=== PATIENT | male | born 1955 | race Caucasian/White ===

== ENCOUNTER 2018-04-22 17:48 | Emergency (ER) | payer SELFPAY ==
[2018-04-22 18:26] LABS: Urine Blood 2+ (NEG); Urine Glucose NEGATIVE (NEG); Urine Protein TRACE (NEG); Urine Specific Gravity 1.025 (1.005-1.030); Urine pH 6.5 (5.0-7.0)
[2018-04-22 18:41] LABS: Urine Bacteria <20 /HPF (NONE SEEN); Urine Culture Reflex Order NOT NEEDED; Urine Mucus 1+ /HPF (NONE SEEN); Urine RBC 20-50 /HPF (NONE SEEN)
[2018-04-22] MEDS ORDERED: KETOROLAC 30 MG/ML INJ ONE (18:42)
[2018-04-22] MEDS ORDERED: ONDANSETRON 4 MG/2 ML VIAL ONE (18:42)
[2018-04-22 18:59] LABS: Absolute Lymphocytes (CBC) 1.4 K/uL (0.7-4.9); Absolute Monocytes 0.5 K/uL (0.1-1.3); Absolute Neutrophil 5.9 K/uL (1.8-8.0); Basophils % 0.6 % (0-1.3); Eosinophils % 0.2 % (0-4.4); Hematocrit 42.1 % (39.6-49.0); Lymphocytes % 18.2 % (15.3-44.8); MCH 32.2 pg (27.0-35.0); MCV 93.4 fL (80-100); MPV 9.4 fL (7.6-11.3); Monocytes % 6.2 % (3.3-12.3); RBC Red Blood Cell Count 4.51 M/uL (4.33-5.43)
[2018-04-22 19:04] LABS: ALT/SGPT 22 U/L (12-78); AST/SGOT 28 U/L (15-37); Alkaline Phosphatase 68 U/L (45-117); Amylase Level 53 U/L (25-115); BUN Blood Urea Nitrogen 11 mg/dL (7-18); Bicarbonate 27 mmol/L (21-32); Bilirubin Direct < 0.1 mg/dL (0-0.2); Bilirubin Total 0.3 mg/dL (0.2-1.0); Glucose Level 150 mg/dL (74-106); Lipase 91 U/L (73-393); Potassium 3.1 mmol/L (3.5-5.1); Protein, Total 7.8 g/dL (6.4-8.2); Sodium Level 137 mmol/L (136-145)
--- NOTE | 2018-04-22 19:54 | RAD REPORT ---
EXAM DESCRIPTION: CT - Stone Protocol - 04/22/2018 7:14 pm CLINICAL HISTORY: Flank pain. right flank pain COMPARISON: None TECHNIQUE: Axial images were obtained without oral or IV contrast. Lack of contrast limits solid org an and vascular assessment. The [id number] spans the entirety of the system partially obscuring uppermost abdomen and lung bases. Coronal reformatted images were obtained and reviewed. All CT scans are performed using dose optimization technique as appropriate and may include automated exposure control or mA/KV adjustment according to patient size. FINDINGS: The lower lung arzate are clear. Small hiatal hernia. Imaged portions of the liver and spleen show no suspicious findings on non-contrast imaging. The panc reas and adrenal glands are normal. No pathologic lymphadenopathy in the abdomen or pelvis. Mild right hydronephrosis and hydroureter is seen. A 2 mm stone is present in the urinary bladder, pr obably recently passed from the right system. Punctate bilateral nephrolithiasis is present in bot h kidneys. No bowel obstruction, free air, free fluid or abscess. The appendix is likely absent. Lumbosacral degenerative changes are seen. IMPRESSION: 2 mm calculus in the urinary bladder is suspected to have been recently passed via the r ight system with mild right sided residual hydronephrosis. Punctate bilateral nephrolithiasis.
--- NOTE | 2018-04-22 20:04 | EDPHYS ---
Physician Documentation [facility] Name: Alban Everett Age: 62 yrs Sex: Male : 1955 Arrival Date: 04/22/2018 Time: 17:50 Bed 30 Private MD: None, None ED Physician Duncan Acharya HPI: 04/22 18:20 This 62 yrs old Male presents to ER via Ambulatory with complaints of Abd cp Pain > 50 y/o, Groin Pain, Back Pain. 18:20 The patient complains of pain in the right mid back. cp 18:20 The pain radiates to the abdomen and pelvis. Onset: The symptoms/episode began/occurred cp suddenly, this morning. Associated signs and symptoms: Pertinent negatives: diarrhea, dysuria, fever, pain radiating to the lower extremities, vomiting. Severity of pain: in the emergency department the pain is actually worse moderately. Historical: - Allergies: 17:59 No Known Allergies; aj1 - Home Meds: 17:59 None [Active]; aj1 - PMHx: 17:59 None; aj1 - PSHx: 17:59 Appendectomy; aj1 - Immunization history:: Flu vaccine is up to date. - Social history:: Smoking status: Patient/guardian denies using tobacco. - Ebola Screening: : Patient denies travel to an Ebola-affected area in the 21 days before illness onset. ROS: 18:25 Constitutional: Negative for body aches, chills, fever, poor PO intake. cp 18:25 Eyes: Negative for injury, pain, redness, and discharge. cp 18:25 ENT: Negative for drainage from ear(s), ear pain, sore throat, difficulty swallowing, difficulty handling secretions. 18:25 Cardiovascular: Negative for chest pain, edema, palpitations. 18:25 Respiratory: Negative for cough, shortness of breath, wheezing. 18:25 Abdomen/GI: Positive for abdominal pain, nausea, Negative for diarrhea, constipation, anorexia, black/tarry stool, rectal bleeding. 18:25 Back: Positive for flank pain, on the right. 18:25 : Negative for urinary symptoms. 18:25 Skin: Negative for cellulitis, rash. 18:25 Neuro: Negative for altered mental status, headache, weakness. 18:25 All other systems are negative. Exam: 18:30 Constitutional: The patient appears in no acute distress, alert, awake, cp non-diaphoretic, non-toxic, well developed, well nourished, uncomfortable. 18:30 Head/Face: Normocephalic, atraumatic. cp 18:30 Eyes: Periorbital structures: appear normal, Conjunctiva: normal, no exudate, no injection, Sclera: no appreciated abnormality, Lids and lashes: appear normal, bilaterally. 18:30 ENT: External ear(s): are unremarkable, Nose: is normal, Mouth: Lips: moist, Oral mucosa: pink and intact, moist, Posterior pharynx: is normal, airway is patent, no erythema, no exudate. 18:30 Neck: ROM/movement: is normal, is supple, without pain, no range of motions limitations, no nuchal rigidity. 18:30 Chest/axilla: Inspection: normal, Palpation: is normal, no crepitus, no tenderness. 18:30 Cardiovascular: Rate: normal, Rhythm: regular, Edema: is not appreciated, JVD: is not appreciated. 18:30 Respiratory: the patient does not display signs of respiratory distress, Respirations: normal, no use of accessory muscles, no retractions, no splinting, no tachypnea, labored breathing, is not present, Breath sounds: are clear throughout, no decreased breath sounds, no stridor, no wheezing. 18:30 Abdomen/GI: Inspection: abdomen appears normal, Bowel sounds: active, all quadrants, Palpation: soft, in all quadrants, severe abdominal tenderness, in the anterior aspect of right lateral abdomen, posterior aspect of right lateral abdomen and right lower quadrant, rebound tenderness, is not appreciated, voluntary guarding, is elicited in the anterior aspect of right lateral abdomen, posterior aspect of right lateral abdomen and right lower quadrant. 18:30 Back: CVA tenderness, is noted on the right. 18:30 Skin: cellulitis, is not appreciated, no rash present. 18:30 Neuro: Orientation: to person, place \T\ time. Mentation: lucid, able to follow commands, Cerebellar function: is grossly normal, Motor: moves all fours, strength is normal, Sensation: no obvious gross deficits. Vital Signs: 17:59 BP 166 / 102; Pulse 88; Resp 18; Temp 97.8; Pulse Ox 98% on R/A; Weight 61.23 kg (R); aj1 Height 6 ft. 0 in. (182.88 cm) (R); Pain 10/10; 19:30 BP 128 / 82 LA Sitting (auto/reg); Pulse 60; Resp 20 S; Pulse Ox 95% on R/A; jp3 17:59 Body Mass Index 18.31 (61.23 kg, 182.88 cm) aj1 MDM: 18:12 Patient medically screened. cp 20:01 Data reviewed: vital signs, nurses notes, lab test result(s), radiologic studies, CT cp scan, and as a result, I will discharge patient. ED course: VSS. Patient reports pain resolved. 04/22 18:12 Order name: Urine Microscopic Only; Complete Time: 19:43 cp 04/22 18:17 Order name: Urine Dipstick--Ancillary (enter results) eb 04/22 18:18 Order name: Urine Dipstick-Ancillary; Complete Time: 19:43 EDMS 04/22 18:25 Order name: Amylase, Serum; Complete Time: 19:43 cp 04/22 18:25 Order name: Basic Metabolic Panel; Complete Time: 19:43 cp 04/22 18:25 Order name: CBC with Diff; Complete Time: 19:43 cp 04/22 18:12 Order name: Urine Dipstick-Ancillary (obtain specimen); Complete Time: 18:21 cp 04/22 18:25 Order name: Creatinine for Radiology; Complete Time: 19:43 cp 04/22 18:25 Order name: Hepatic Function; Complete Time: 19:43 cp 04/22 18:25 Order name: Lipase; Complete Time: 19:43 cp 04/22 18:25 Order name: CT Stone Protocol; Complete Time: 19:57 cp 04/22 18:25 Order name: IV Saline Lock; Complete Time: 18:40 cp 04/22 18:25 Order name: Labs collected and sent; Complete Time: 18:40 cp Administered Medications: 18:39 Drug: TORadol 30 mg Route: IVP; Site: right antecubital; rv 20:03 Follow up: Response: No adverse reaction; Pain is decreased rv 18:39 Drug: Zofran 4 mg Route: IVP; Site: right antecubital; rv 20:03 Follow up: Response: No adverse reaction; Pain is decreased rv Disposition: 04/23 10:00 Co-signature as Attending Physician, Duncan Acharya MD. rn Disposition: 04/22/18 20:03 Discharged to Home. Impression: Calculus of kidney. - Condition is Stable. - Discharge Instructions: Kidney Stones. - Medication Reconciliation Form, Thank You Letter, Antibiotic Education, Prescription Opioid Use form. - Follow up: Emergency Department; When: As needed; Reason: Worsening of condition. - Problem is new. - Symptoms are resolved. Signatures: Dispatcher [employer] EDiLsa Duque RN RN aj1 Duncan Acharya MD MD rn Garrett Burton PA PA cp Wero Whitney RN RN rv Corrections: (The following items were deleted from the chart) 04/22 20:16 20:03 04/22/2018 20:03 Discharged to Home. Impression: Calculus of kidney. Condition is rv Stable. Forms are Medication Reconciliation Form, Thank You Letter, Antibiotic Education, Prescription Opioid Use. Follow up: Emergency Department; When: As needed; Reason: Worsening of condition. Problem is new. Symptoms are resolved. cp
--- NOTE | 2018-04-22 20:04 | ER ---
Nurse's Notes [facility] Name: Alban Everett Age: 62 yrs Sex: Male : 1955 Arrival Date: 04/22/2018 Time: 17:50 Bed 30 Private MD: None, None Diagnosis: Calculus of kidney Presentation: 04/22 17:52 Presenting complaint: Patient states: Right lower back pain that radiates to his groin. aj1 Denies pain with urination, denies urinary frequency. Transition of care: patient was not received from another setting of care. Onset of symptoms was April 22, 2018 at 04:15. Risk Assessment: Do you want to hurt yourself or someone else? Patient reports no desire to harm self or others. Initial Sepsis Screen: Does the patient meet any 2 criteria? No. Patient's initial sepsis screen is negative. Does the patient have a suspected source of infection? No. Patient's initial sepsis screen is negative. Care prior to arrival: None. 17:52 Method Of Arrival: Ambulatory aj1 17:52 Acuity: TRI 3 aj1 Triage Assessment: 17:59 General: Appears in no apparent distress. uncomfortable, Behavior is calm, cooperative, aj1 appropriate for age. Pain: Complains of pain in right low back Pain radiates to groin and right femoral area Pain currently is 10 out of 10 on a pain scale. Neuro: Level of Consciousness is awake, alert, obeys commands. Cardiovascular: Patient's skin is warm and dry. Respiratory: Airway is patent Respiratory effort is even, unlabored, Respiratory pattern is regular, symmetrical. GI: Reports nausea, Patient currently denies diarrhea, vomiting. : Denies burning with urination, urinary frequency. Historical: - Allergies: 17:59 No Known Allergies; aj1 - Home Meds: 17:59 None [Active]; aj1 - PMHx: 17:59 None; aj1 - PSHx: 17:59 Appendectomy; aj1 - Immunization history:: Flu vaccine is up to date. - Social history:: Smoking status: Patient/guardian denies using tobacco. - Ebola Screening: : Patient denies travel to an Ebola-affected area in the 21 days before illness onset. Screenin:14 Abuse screen: Denies threats or abuse. Denies injuries from another. Nutritional rv screening: No deficits noted. Tuberculosis screening: No symptoms or risk factors identified. Fall Risk None identified. Assessment: 17:30 General: Appears in no apparent distress. uncomfortable, Behavior is calm, cooperative. rv 17:30 Pain: Complains of pain in flank. Neuro: Level of Consciousness is awake, alert, obeys rv commands, Oriented to person, place, time, situation. Cardiovascular: Capillary refill < 3 seconds. Respiratory: Airway is patent. GI: No signs and/or symptoms were reported involving the gastrointestinal system. Bowel sounds present X 4 quads. Abd is soft and non tender X 4 quads. : No signs and/or symptoms were reported regarding the genitourinary system. EENT: No signs and/or symptoms were reported regarding the EENT system. Derm: Skin is intact. Vital Signs: 17:59 BP 166 / 102; Pulse 88; Resp 18; Temp 97.8; Pulse Ox 98% on R/A; Weight 61.23 kg (R); aj1 Height 6 ft. 0 in. (182.88 cm) (R); Pain 10/10; 19:30 BP 128 / 82 LA Sitting (auto/reg); Pulse 60; Resp 20 S; Pulse Ox 95% on R/A; jp3 17:59 Body Mass Index 18.31 (61.23 kg, 182.88 cm) aj1 ED Course: 17:50 Patient arrived in ED. sb2 17:50 None, None is Private Physician. sb2 17:58 Triage completed. aj1 17:59 Arm band placed on Patient placed in an exam room. aj1 18:00 No provider procedures requiring assistance completed. Inserted saline lock: 20 gauge rv in right antecubital area, using aseptic technique. 18:12 Garrett Burton PA is PHCP. cp 18:12 Duncan Acharya MD is Attending Physician. cp 18:25 Urine Microscopic Only Sent. jp3 18:25 Urine Dipstick--Ancillary (enter results) Sent. jp3 18:25 Urine Dipstick-Ancillary Sent. jp3 19:13 CT completed. Patient tolerated procedure well. Patient moved back from CT. vr 19:14 CT Stone Protocol In Process Unspecified. EDMS 20:14 Patient has correct armband on for positive identification. Bed in low position. Call rv light in reach. Side rails up X2. Pulse ox on. NIBP on. 20:15 IV discontinued, bleeding controlled, No redness/swelling at site. Pressure dressing rv applied. Administered Medications: 18:39 Drug: TORadol 30 mg Route: IVP; Site: right antecubital; rv 20:03 Follow up: Response: No adverse reaction; Pain is decreased rv 18:39 Drug: Zofran 4 mg Route: IVP; Site: right antecubital; rv 20:03 Follow up: Response: No adverse reaction; Pain is decreased rv Outcome: 20:03 Discharge ordered by . cp 20:16 Discharged to home ambulatory. rv 20:16 Condition: improved 20:16 Discharge instructions given to patient, Instructed on discharge instructions, follow up and referral plans. Demonstrated understanding of instructions, follow-up care. 20:16 Patient left the ED. rv Signatures: Dispatcher [employer] EDLisa Duque, RN RN aj1 Charla Bhandari Corey, PA PA cp Billeau, Sheri sb2 Wero Whitney RN RN rv Reid Paiz jp3
[2018-04-22] MEDS ORDERED: POTASSIUM 25 MEQ EFFERV TAB ONE (20:12)
== END 2018-04-22 20:16 | disposition home or self-care (01) ==
LOC: ER 17:48
DX: N13.2 Hydronephrosis with renal and ureteral calculous obstruction (principal)
CPT/HCPCS: 36415; 74176; 76377; 80048; 80076; 81003; 81015; 82150; 83690; 85025; 96374; 96375; 99284; J2405

== ENCOUNTER 2019-01-21 09:09 | Emergency (ER) | payer SELFPAY ==
--- OUTSIDE RECORDS SUMMARY | 2019-01-21 09:16 | XMS REPORT ---
:1955 [facility] [address] [place] [address] [address] [place] [address] Care Team Providers Name Role Phone Unavailable Unavailable Unavailable Problems This patient has no known problems. Allergies, Adverse Reactions, Alerts This patient has no known allergies or adverse reactions. Medications This patient has no known medications.
[2019-01-21] MEDS ORDERED: HYDROCODONE/APAP 7.5/325 MG TAB ONE (09:42)
--- NOTE | 2019-01-21 10:13 | RAD REPORT ---
EXAM DESCRIPTION: RAD - Chest Pa And Lat (2 Views) - 01/21/2019 9:41 am CLINICAL HISTORY: Chest, shoulder and neck pain COMPARISON: None. TECHNIQUE: PA and lateral views of the chest were obtained. FINDINGS: The lungs are clear of failure, infiltrate or mass. Chronic interstitial lung disease is e vident. Heart size is normal and central vasculature is within normal limits. No pleural effusion or pneumothorax seen. No acute bony finding noted. No aortic abnormality. IMPRESSION: No acute cardiopulmonary process.
--- NOTE | 2019-01-21 10:17 | RAD REPORT ---
EXAM DESCRIPTION: CT - C Spine Wo Con - 01/21/2019 9:49 am CLINICAL HISTORY: Left-sided neck and shoulder pain COMPARISON: None. TECHNIQUE: Axial 2 mm thick images of the cervical spine were obtained with sagittal and coronal rec onstruction images generated and reviewed. All CT scans are performed using dose optimization technique as appropriate and may include automated exposure control or mA/KV adjustment according to patient size. FINDINGS: Cervical bodies are normal in height. There is slight retrolisthesis of C4 on C5. Signific ant C4-5 disc space narrowing is seen with additional disc space narrowing at C5-6 and C6-7. No fract ure or acute bone process identifiable. Bilateral bony foraminal encroachment is present at C4-5 and severe at C5-6. Left bony foraminal encroachment at C6-7. No paraspinal mass or hematoma. Central canal detail is inherently limited on CT imaging. IMPRESSION: No fracture or acute cervical spine finding. Prominent cervical spine degenerative change involves C4-C7 with bony foraminal encroachment at these disc levels.
--- NOTE | 2019-01-21 10:31 | ER ---
Nurse's Notes [facility] Name: Alban Everett Age: 63 yrs Sex: Male : 1955 Arrival Date: 01/21/2019 Time: 09:14 Bed 14 Private MD: Diagnosis: Radiculopathy, cervical region Presentation: 01/21 09:18 Transition of care: patient was not received from another setting of care. Onset of tw2 symptoms was January 21, 2019. Risk Assessment: Do you want to hurt yourself or someone else? Patient reports no desire to harm self or others. Initial Sepsis Screen: Does the patient meet any 2 criteria? No. Patient's initial sepsis screen is negative. Does the patient have a suspected source of infection? No. Patient's initial sepsis screen is negative. Care prior to arrival: None. 09:18 Acuity: TRI 4 tw2 09:18 Method Of Arrival: Ambulatory tw2 09:21 Presenting complaint: Patient states: my left neck and shoulder started hurting 2 -3 tw2 days ago, decreased range of motion of my neck, i didn't fall. Acute neurological deficit: none identified. Triage Assessment: 09:19 General: Appears in no apparent distress. slender, Behavior is calm, cooperative, tw2 appropriate for age. Pain: Complains of pain in left arm, shoulder and neck. EENT: No signs and/or symptoms were reported regarding the EENT system. Neuro: Level of Consciousness is awake, alert, obeys commands, Oriented to person, place, time, situation. Cardiovascular: Patient's skin is warm and dry. Respiratory: Airway is patent Respiratory effort is even, unlabored, Respiratory pattern is regular, symmetrical. GI: No signs and/or symptoms were reported involving the gastrointestinal system. : Derm: No signs and/or symptoms reported regarding the dermatologic system. Musculoskeletal: Range of motion: intact in all extremities, Reports pain in left shoulder and neck. Historical: - Allergies: : No Known Allergies; tw2 - Home Meds: : None [Active]; tw2 - PMHx: : None; tw2 - PSHx: :19 Appendectomy; tw2 - Immunization history:: Adult Immunizations. - Social history:: Smoking status: Patient uses tobacco products, smokes one pack cigarettes per day. - Ebola Screening: : Patient denies travel to an Ebola-affected area in the 21 days before illness onset. Screenin:17 Abuse screen: Denies threats or abuse. Nutritional screening: No deficits noted. tw2 Tuberculosis screening: No symptoms or risk factors identified. Fall Risk None identified. Assessment: 09:20 Reassessment: see triage assessment. Neuro: Level of Consciousness is awake, alert, tw2 obeys commands. 10:37 Reassessment: Patient appears in no apparent distress at this time. Patient and/or tw2 family updated on plan of care and expected duration. Pain level reassessed. Patient is alert, oriented x 3, equal unlabored respirations, skin warm/dry/pink. Patient states feeling better. Patient states symptoms have improved. Vital Signs: 09:23 BP 137 / 97; Pulse 94; Resp 17; Pulse Ox 99% on R/A; tw2 09:24 Weight 63.5 kg; Height 6 ft. 0 in. (182.88 cm); Pain 8/10; ss 09:30 Temp 97.9(TE); tw2 09:24 Body Mass Index 18.99 (63.50 kg, 182.88 cm) ss ED Course: 09:14 Patient arrived in ED. mr 09:15 Yasmin Mabry FNP-C is [facility]. kb 09:15 Duncan Acharya MD is Attending Physician. kb 09:17 Candida Keller, JODY is Primary Nurse. tw2 09:17 Arm band placed on. tw2 09:18 Triage completed. tw2 09:18 Bed in low position. Call light in reach. tw2 09:21 No provider procedures requiring assistance completed. Patient did not have IV access tw2 during this emergency room visit. 09:40 Chest Pa And Lat (2 Views) XRAY In Process Unspecified. EDMS 09:49 CT completed. Patient tolerated procedure well. Patient moved back from CT. bq 09:50 CT C Spine In Process Unspecified. EDMS Administered Medications: 09:30 Drug: Davin (7.5 mg-325 mg) 1 tabs Route: PO; tw2 10:30 Follow up: Response: No adverse reaction; Pain is decreased tw2 Outcome: 10:31 Discharge ordered by . kb 10:37 Discharged to home ambulatory, with significant other. tw2 10:37 Condition: stable 10:37 Discharge instructions given to patient, significant other, Instructed on discharge instructions, follow up and referral plans. no drinking with medication, no driving heavy equipment, medication usage, Demonstrated understanding of instructions, follow-up care, medications, Prescriptions given X 3. 10:38 Patient left the ED. tw2 Signatures: Dispatcher [employer] EDMS Yasmin Mabry, AFSHIN-C [employer]-Dary Cory Mya mr KnightPatt Shelby, RN RN Candida Keller RN RN tw2
--- NOTE | 2019-01-21 10:32 | EDPHYS ---
Physician Documentation [facility] Name: Alban Everett Age: 63 yrs Sex: Male : 1955 Arrival Date: 01/21/2019 Time: 09:14 Bed 14 Private MD: ED Physician Duncan Acharya HPI: 01/21 09:35 This 63 yrs old Male presents to ER via Ambulatory with complaints of kb Shoulder Pain, Neck Problem. 09:36 The patient or guardian complains of decreased range of motion, pain, that is acute, kb tenderness. The symptoms are located on the left posterior aspect of neck. Onset: The symptoms/episode began/occurred 3 day(s) ago. Context: The problem was sustained at home, The neck injury/problem resulted from from unknown cause. Associated signs and symptoms: The patient has no apparent associated signs or symptoms, The patient denies any alcohol use. The patient is not apparently intoxicated. No neurological symptoms were experienced by the patient prior to arrival in the emergency department. The pain radiates to the left arm. Modifying factors: The symptoms are alleviated by nothing. the symptoms are aggravated by movement, pressure. Severity of symptoms: At their worst the symptoms were moderate, in the emergency department the symptoms are unchanged. The patient has not experienced similar symptoms in the past. The patient has not recently seen a physician. Pt reports he started having left posterior neck pain that radiates to left shoulder, scapula and arm 3 days ago. Reports he also has left lateral chest pain when he coughs, takes a deep breath, moves or sneezes. Has been taking ibuprofen without relief. States "I want something to wear or something to stop the pain. Pain medication will just mask it." Denies trauma, rash, cough, fever, shortness of breath, or any other symptoms. . Historical: - Allergies: 09:19 No Known Allergies; tw2 - Home Meds: 09:19 None [Active]; tw2 - PMHx: 09:19 None; tw2 - PSHx: 09:19 Appendectomy; tw2 - Immunization history:: Adult Immunizations. - Social history:: Smoking status: Patient uses tobacco products, smokes one pack cigarettes per day. - Ebola Screening: : Patient denies travel to an Ebola-affected area in the 21 days before illness onset. ROS: 09:34 Constitutional: Negative for fever, chills, and weight loss, ENT: Negative for injury, kb pain, and discharge, Respiratory: Negative for shortness of breath, cough, wheezing, and pleuritic chest pain, Abdomen/GI: Negative for abdominal pain, nausea, vomiting, diarrhea, and constipation, : Negative for injury, bleeding, discharge, and swelling, Skin: Negative for injury, rash, and discoloration, Neuro: Negative for headache, weakness, numbness, tingling, and seizure. 09:34 Neck: Positive for pain with movement, pain at rest. 09:34 Cardiovascular: Positive for chest pain, with cough, with movement, of the left lateral anterior chest and left lateral posterior chest. 09:34 Back: Positive for pain at rest, pain with movement, radiated pain, of the left trapezius and left scapular area. 09:34 MS/extremity: Positive for pain, tenderness, of the left arm. Exam: 09:32 Constitutional: This is a well developed, well nourished patient who is awake, alert, kb and in no acute distress. Head/Face: Normocephalic, atraumatic. ENT: Nares patent. No nasal discharge, no septal abnormalities noted. Tympanic membranes are normal and external auditory canals are clear. Oropharynx with no redness, swelling, or masses, exudates, or evidence of obstruction, uvula midline. Mucous membranes moist. Chest/axilla: Normal chest wall appearance and motion. Nontender with no deformity. No lesions are appreciated. Cardiovascular: Regular rate and rhythm with a normal S1 and S2. No gallops, murmurs, or rubs. Normal PMI, no JVD. No pulse deficits. Respiratory: Lungs have equal breath sounds bilaterally, clear to auscultation and percussion. No rales, rhonchi or wheezes noted. No increased work of breathing, no retractions or nasal flaring. Abdomen/GI: Soft, non-tender, with normal bowel sounds. No distension or tympany. No guarding or rebound. No evidence of tenderness throughout. Skin: Warm, dry with normal turgor. Normal color with no rashes, no lesions, and no evidence of cellulitis. Neuro: Awake and alert, GCS 15, oriented to person, place, time, and situation. Cranial nerves II-XII grossly intact. Motor strength 5/5 in all extremities. Sensory grossly intact. Cerebellar exam normal. Normal gait. 09:32 Neck: External neck: tenderness, that is moderate, of the left posterior aspect of neck. 09:32 Back: pain, that is moderate, of the left trapezius and left scapular area. 09:33 Musculoskeletal/extremity: Extremities: grossly normal except: noted in the left arm: kb decreased ROM, pain, tenderness, ROM: limited active range of motion due to pain, in the left arm, Circulation is intact in all extremities. Sensation intact. 09:35 ECG was reviewed by the Attending Physician. kb Vital Signs: 09:23 BP 137 / 97; Pulse 94; Resp 17; Pulse Ox 99% on R/A; tw2 09:24 Weight 63.5 kg; Height 6 ft. 0 in. (182.88 cm); Pain 8/10; ss 09:30 Temp 97.9(TE); tw2 09:24 Body Mass Index 18.99 (63.50 kg, 182.88 cm) ss MDM: 09:17 Patient medically screened. kb 09:32 Data reviewed: vital signs, nurses notes. Data interpreted: Pulse oximetry: on room air kb is 99 %. Interpretation: normal. 10:31 Counseling: I had a detailed discussion with the patient and/or guardian regarding: the kb historical points, exam findings, and any diagnostic results supporting the discharge/admit diagnosis, radiology results, the need for outpatient follow up, a family practitioner, to return to the emergency department if symptoms worsen or persist or if there are any questions or concerns that arise at home. 01/21 09:23 Order name: Chest Pa And Lat (2 Views) XRAY; Complete Time: 10:30 kb 01/21 09:23 Order name: CT C Spine; Complete Time: 10:30 kb 01/21 09:26 Order name: EKG; Complete Time: :28 kb 01/21 09:26 Order name: EKG - Nurse/Tech; Complete Time: 30 kb EC:35 Rate is 75 beats/min. Rhythm is regular, Normal Sinus Rhythm. QRS [place] is Normal. [place] kb interval is normal at 132 msec. QRS interval is normal at 86 msec. QT interval is normal at 366 msec. Clinical impression: Normal ECG. Interpreted by me. Reviewed by me. Administered Medications: 09:30 Drug: [place] (7.5 mg-325 mg) 1 tabs Route: PO; tw2 10:30 Follow up: Response: No adverse reaction; Pain is decreased tw2 Disposition: 13:55 Co-signature as Attending Physician, Duncan Acharya MD. rn Disposition: 01/21/19 10:31 Discharged to Home. Impression: Radiculopathy, cervical region. - Condition is Stable. - Discharge Instructions: Cervical Radiculopathy, [id number]. - Prescriptions for Prednisone 20 mg Oral Tablet - take 1 tablet by ORAL route once daily for 5 days; 5 tablet. Cyclobenzaprine 10 mg Oral Tablet - take 1 tablet by ORAL route every 8 hours As needed; 21 tablet. Tramadol 50 mg Oral Tablet - take 1 tablet by ORAL route every 8 hours as needed; 12 tablet. - Medication Reconciliation Form, Thank You Letter, Antibiotic Education, Prescription Opioid Use form. - Follow up: Emergency Department; When: As needed; Reason: Worsening of condition. Follow up: Private Physician; When: 2 - 3 days; Reason: Recheck today's complaints, Continuance of care, Re-evaluation by your physician. Signatures: Dispatcher [employer] EDDE Yasmin Mabry, MICROPALEONTOLOGIST-C MICROPALEONTOLOGIST-Ckb Duncan Acharya MD MD rn Wise, Tara, RN RN tw2 Corrections: (The following items were deleted from the chart) 10:38 10:31 01/21/2019 10:31 Discharged to Home. Impression: Radiculopathy, cervical region. tw2 Condition is Stable. Forms are Medication Reconciliation Form, Thank You Letter, Antibiotic Education, Prescription Opioid Use. Follow up: Emergency Department; When: As needed; Reason: Worsening of condition. Follow up: Private Physician; When: 2 - 3 days; Reason: Recheck today's complaints, Continuance of care, Re-evaluation by your physician. kb
--- NOTE | 2019-01-22 09:57 | EKG ---
Test Date: 2019-01-21 Test Time: 09:33:32 Gas Welding Machine Operator: ARIELLA MEASUREMENT RESULTS: Intervals: Rate: 75 RI: 132 QRSD: 86 QT: 366 QTc: 408 [place]: P: 72 RI: 132 QRS: 53 T: 59 INTERPRETIVE STATEMENTS: Normal sinus rhythm Normal ECG No previous ECG available for comparison Electronically Signed On 01-22-19 09:56:26 CDT by Brandon Latif
== END 2019-01-21 10:38 | disposition home or self-care (01) ==
LOC: ER 09:09
DX: M54.12 Radiculopathy, cervical region (principal); F17.210 Nicotine dependence, cigarettes, uncomplicated
CPT/HCPCS: 71046; 72125; 93005; 99284

== ENCOUNTER 2021-01-26 16:09 | Emergency (ER) | payer OTHER, SELFPAY ==
[2021-01-26] MEDS ORDERED: HYDROCODONE/CHLORPHEN 5 ML/OSYR ONE (18:41)
--- NOTE | 2021-01-26 19:06 | RAD REPORT ---
EXAM DESCRIPTION: RAD - Chest Single View - 01/26/2021 6:32 pm CLINICAL HISTORY: Cough;Congestion COMPARISON: Two view chest January 2019 TECHNIQUE: AP portable chest image was obtained 01/26/2021 6:32 pm . FINDINGS: No acute lung parenchymal process. Interstitial pattern matches comparison. Heart and vasc ulature are normal. No measurable pleural effusion and no pneumothorax. No acute bony abnormality see n. No acute aortic findings suspected. IMPRESSION: No acute cardiopulmonary process. No significant change from comparison study.
--- NOTE | 2021-01-26 19:15 | EDPHYS ---
Physician Documentation [facility] Name: Alban Everett Age: 65 yrs Sex: Male : 1955 Arrival Date: 01/26/2021 Time: 16:13 Bed 7 Private MD: MARIA DEL CARMEN Physician Garrett Wright HPI: 01/26 19:08 This 65 yrs old Male presents to ER via Ambulatory with complaints of kb Breathing Difficulty, Chest Congestion. 19:08 The patient or guardian reports cough, that is intermittent, described as mild. Onset: kb The symptoms/episode began/occurred 3 day(s) ago. Severity of symptoms: At their worst the symptoms were mild, in the emergency department the symptoms are unchanged. Modifying factors: The symptoms are alleviated by nothing, the symptoms are aggravated by nothing. Associated signs and symptoms: Pertinent positives: rhinorrhea, sore throat, Pertinent negatives: chest pain, diarrhea, ear ache, fever, nausea, vomiting. The patient has not experienced similar symptoms in the past. The patient has not recently seen a physician. Pt reports cough, runny nose and sore throat for 3 days. States it feels like a summer cold. PT does not want to be tested for flu or covid. . Historical: - Allergies: 16:27 No Known Allergies; ss - Home Meds: 16:28 None [Active]; ss - PMHx: 16:28 None; ss - PSHx: 16:27 Appendectomy; ss - Immunization history:: Adult Immunizations up to date. - Social history:: Smoking status: Patient denies any tobacco usage or history of. ROS: 19:10 Constitutional: Negative for fever, chills, and weight loss. kb 19:10 ENT: Positive for rhinorrhea, sinus congestion, sore throat. 19:10 Respiratory: Positive for cough, Negative for dyspnea on exertion, hemoptysis, orthopnea, pleurisy, shortness of breath, sputum production, wheezing. 19:10 All other systems are negative. Exam: 19:10 Constitutional: This is a well developed, well nourished patient who is awake, alert, kb and in no acute distress. Head/Face: Normocephalic, atraumatic. ENT: Moist Mucous membranes Cardiovascular: Regular rate and rhythm with a normal S1 and S2. No gallops, murmurs, or rubs. No pulse deficits. Respiratory: Respirations even and unlabored. No increased work of breathing, no retractions or nasal flaring. Abdomen/GI: Soft, non-tender. No distention Skin: Warm, dry with normal turgor. Normal color. MS/ Extremity: Pulses equal, no cyanosis. Neurovascular intact. Full, normal range of motion. Neuro: Awake and alert, GCS 15, oriented to person, place, time, and situation. Moves all extremities. Normal gait. Psych: Awake, alert, with orientation to person, place and time. Behavior, mood, and affect are within normal limits. 19:10 ENT: Ear canal(s): are normal, TM's: are normal, Nose: is normal, Mouth: is normal, Posterior pharynx: is normal. Vital Signs: 16:25 Weight 63.5 kg; Height 6 ft. 0 in. (182.88 cm); ss 16:27 BP 152 / 95; Pulse 104; Resp 18; Temp 98.9(TE); Pulse Ox 100% on R/A; Pain 0/10; ss 18:00 BP 142 / 82; Pulse 90; Resp 17; Pulse Ox 99% on R/A; hb 16:25 Body Mass Index 18.99 (63.50 kg, 182.88 cm) ss MDM: 17:55 Patient medically screened. kb 19:07 Data reviewed: vital signs, nurses notes. Data interpreted: Pulse oximetry: on room air kb is 99 %. Interpretation: normal. Counseling: I had a detailed discussion with the patient and/or guardian regarding: the historical points, exam findings, and any diagnostic results supporting the discharge/admit diagnosis, lab results, radiology results, the need for outpatient follow up, a family practitioner, to return to the emergency department if symptoms worsen or persist or if there are any questions or concerns that arise at home. 01/26 17:55 Order name: Chest Single View XRAY; Complete Time: 19:07 kb 01/26 17:56 Order name: Strep; Complete Time: 19:03 kb 01/26 19:11 Order name: Throat Culture EDMS Administered Medications: 18:24 Drug: Tussionex Pennkinetic ER (chlorpheniramine-hydrocodone) 5 ml Route: PO; hb Disposition: 01/27 07:26 Co-signature as Attending Physician, Garrett Wright MD I agree with the assessment and [facility] plan of care. Disposition: 01/26/21 19:14 Discharged to Home. Impression: Acute upper respiratory infection, unspecified. - Condition is Stable. - Discharge Instructions: Upper Respiratory Infection, Adult, [id number], Viral Respiratory Infection, [id number]. - Prescriptions for Tessalon Perles 100 mg Oral Capsule - take 1 capsule by ORAL route every 8 hours As needed; 15 capsule. - Medication Reconciliation Form, Thank You Letter, Antibiotic Education, Prescription Opioid Use form. - Follow up: Emergency Department; When: As needed; Reason: Worsening of condition. Follow up: Private Physician; When: 2 - 3 days; Reason: Recheck today's complaints, Continuance of care, Re-evaluation by your physician. Signatures: Dispatcher [employer] EDMS Yasmin Mabry, PSYCHIATRIC SOCIAL WORKER-C PSYCHIATRIC SOCIAL WORKER-Ckb Garrett Wright MD MD cha Smirch, Shelby, RN RN ss Basilia Khoury RN RN hb Bryson, James, RN RN jb4 Corrections: (The following items were deleted from the chart) 01/26 18:27 17:56 Influenza Screen (A \T\ B)+BA.LAB.BRZ ordered. EDIN EDMS 18:27 17:56 CORONAVIRUS+MR.LAB.BRZ ordered. EDIN EDMS 19:23 19:14 01/26/2021 19:14 Discharged to Home. Impression: Acute upper respiratory jb4 infection, unspecified. Condition is Stable. Forms are Medication Reconciliation Form, Thank You Letter, Antibiotic Education, Prescription Opioid Use. Follow up: Emergency Department; When: As needed; Reason: Worsening of condition. Follow up: Private Physician; When: 2 - 3 days; Reason: Recheck today's complaints, Continuance of care, Re-evaluation by your physician. kb
--- NOTE | 2021-01-26 19:15 | ER ---
Nurse's Notes [facility] Name: Alban Everett Age: 65 yrs Sex: Male : 1955 Arrival Date: 01/26/2021 Time: 16:13 Bed 7 Private MD: Diagnosis: Acute upper respiratory infection, unspecified Presentation: 01/26 16:25 Chief complaint: Patient states: scratchy throat and cough that began 3 days ago. Runny ss nose/ congestion that began today. Denies fever. Coronavirus screen: Client denies travel out of the [place] in the last 14 days. Ebola Screen: Patient denies exposure to infectious person. Patient denies travel to an Ebola-affected area in the 21 days before illness onset. Initial Sepsis Screen: Does the patient meet any 2 criteria? No. Patient's initial sepsis screen is negative. Does the patient have a suspected source of infection? No. Patient's initial sepsis screen is negative. Risk Assessment: Do you want to hurt yourself or someone else? Patient reports no desire to harm self or others. Onset of symptoms was January 23, 2021. 16:25 Method Of Arrival: Ambulatory ss 16:25 Acuity: TRI 3 ss Historical: - Allergies: 16:27 No Known Allergies; ss - Home Meds: 16:28 None [Active]; ss - PMHx: 16:28 None; ss - PSHx: 16:27 Appendectomy; ss - Immunization history:: Adult Immunizations up to date. - Social history:: Smoking status: Patient denies any tobacco usage or history of. Screenin:24 Abuse screen: Denies threats or abuse. Denies injuries from another. Nutritional hb screening: No deficits noted. Tuberculosis screening: No symptoms or risk factors identified. Fall Risk None identified. Assessment: 18:24 General: Appears in no apparent distress. Behavior is calm, cooperative. Pain: Pain hb currently is 3 out of 10 on a pain scale. Neuro: Level of Consciousness is awake, alert, obeys commands, Oriented to person, place, time, situation. Cardiovascular: Patient's skin is warm and dry. Rhythm is regular. Respiratory: Reports cough that is Airway is patent Respiratory effort is even, unlabored. GI: No signs and/or symptoms were reported involving the gastrointestinal system. : No signs and/or symptoms were reported regarding the genitourinary system. EENT: Reports sore throat. Derm: Skin is pink, warm \T\ dry. Musculoskeletal: No signs and/or symptoms reported regarding the musculoskeletal system. 18:26 Reassessment: Cancel flu and COVID swabs per CUSTOM FEED MILL OPERATOR Yasmin, pt was vaccinated. Frannie gonzales in outside lab notified. 19:22 Reassessment: Patient appears in no apparent distress at this time. Patient and/or jb4 family updated on plan of care and expected duration. Pain level reassessed. Patient is alert, oriented x 3, equal unlabored respirations, skin warm/dry/pink. Vital Signs: 16:25 Weight 63.5 kg; Height 6 ft. 0 in. (182.88 cm); ss 16:27 BP 152 / 95; Pulse 104; Resp 18; Temp 98.9(TE); Pulse Ox 100% on R/A; Pain 0/10; ss 18:00 BP 142 / 82; Pulse 90; Resp 17; Pulse Ox 99% on R/A; hb 16:25 Body Mass Index 18.99 (63.50 kg, 182.88 cm) ED Course: 16:13 Patient arrived in ED. mr 16:27 Triage completed. ss 16:27 Arm band placed on right wrist. ss 17:55 [facility]abry [facility]NP[facility]C [facility]. kb 17:55 Garrett Wright MD is Attending Physician. kb 18:19 Basilia Khoury, RN is Primary Nurse. hb 18:26 Patient has correct armband on for positive identification. Bed in low position. Call hb light in reach. 18:33 Chest Single View XRAY In Process Unspecified. EDMS 19:22 No provider procedures requiring assistance completed. Patient did not have IV access jb4 during this emergency room visit. Administered Medications: 18:24 Drug: Tussionex [place] ER (chlorpheniramine-hydrocodone) 5 ml Route: PO; hb Outcome: 19:14 Discharge ordered by . kb 19:22 Discharged to home ambulatory, with family. jb4 19:22 Condition: stable 19:22 Discharge instructions given to patient, Instructed on discharge instructions, follow up and referral plans. medication usage, Demonstrated understanding of instructions, follow-up care, medications, Prescriptions given X 1. 19:23 Patient left the ED. jb4 Signatures: Dispatcher [employer] EDMS Raghavendra, Yasmin, SUPERVISOR BLASTING-C SUPERVISOR BLASTING-Ckb Cory Mya mr Kelsie Sheppard, RN RN Basilia Murphy, RN RN Reji Saez, RN RN jb4
[2021-01-26 20:12] VITALS: TEMP 98.9
[2021-01-26 20:14] VITALS: BP 142/82; O2SAT 99
== END 2021-01-26 19:23 | disposition home or self-care (01) ==
LOC: ER 16:09
DX: J06.9 Acute upper respiratory infection, unspecified (principal)
CPT/HCPCS: 71045; 87070; 87081; 99283

== ENCOUNTER 2021-03-03 04:39 | Emergency (ER) | payer OTHER ==
--- OUTSIDE RECORDS SUMMARY | 2021-03-03 04:41 | XMS REPORT | Continuity of Care Document ---
:1955 Author Organization [facility] t Address [address] [place] [address] Dr. Sterling [address] [place] [id number] Care Team Providers Name Role Phone Unavailable Unavailable Unavailable Problems This patient has no known problems. Allergies, Adverse Reactions, Alerts This patient has no known allergies or adverse reactions. Medications This patient has no known medications. Procedures This patient has no known procedures. Results This patient has no known results.
[2021-03-03 05:13] LABS: Absolute Lymphocytes (CBC) 2.8 K/uL (0.7-4.9); Basophils % 1.1 % (0-1.3); Hematocrit 41.1 % (39.6-49.0); Lymphocytes % 39.3 % (15.3-44.8); MPV 8.4 fL (7.6-11.3)
[2021-03-03] MEDS ORDERED: NA CHLORIDE 0.9% 1,000 ML ONE (05:15)
[2021-03-03] MEDS ORDERED: ONDANSETRON 4 MG/2 ML VIAL ONE (05:15)
[2021-03-03] MEDS ORDERED: KETOROLAC 30 MG/ML INJ ONE (05:15)
[2021-03-03] MEDS ORDERED: MORPHINE 4 MG/ML SYR ONE (05:15)
[2021-03-03 05:31] LABS: Albumin 4.2 g/dL (3.4-5.0); Bilirubin Direct 0.1 mg/dL (0-0.2); Bilirubin Total 0.4 mg/dL (0.2-1.0); Potassium 3.8 mmol/L (3.5-5.1)
[2021-03-03] MEDS ORDERED: CEFTRIAXONE/SWI 1gm 1 GM/10 ML SYR ONE (05:59)
[2021-03-03] MEDS ORDERED: TAMSULOSIN 0.4 MG SR CAP ONE (05:59)
--- NOTE | 2021-03-03 06:19 | EDPHYS ---
Physician Documentation [facility] Name: Alban Everett Age: 65 yrs Sex: Male : 1955 Arrival Date: 03/03/2021 Time: 04:41 Bed 5 Private MD: ED Physician Garrett Wright HPI: 03/03 04:55 This 65 yrs old Male presents to ER via Unassigned with complaints of dixie Possible Kidney Stone. 04:55 The patient presents with abdominal pain in the left lower quadrant. Onset: The dixie symptoms/episode began/occurred just prior to arrival. The patient presents with pain that is acute, with no known mechanism of injury, and decreased range of motion. The symptoms are located in the left low back and left mid back. Onset: The symptoms/episode began/occurred just prior to arrival. The pain radiates to the anterior aspect of left lateral abdomen, posterior aspect of left lateral abdomen, left upper quadrant and left lower quadrant. Associated signs and symptoms: The patient has no apparent associated signs or symptoms. The problem was sustained from unknown cause. Modifying factors: The patient symptoms are alleviated by remaining still, the patient symptoms are aggravated by nothing. Severity of symptoms: At their worst the symptoms were moderate, in the emergency department the symptoms are unchanged. Historical: - Allergies: 05:00 No Known Allergies; bb - Immunization history:: Adult Immunizations unknown. - Social history:: Smoking status: Patient reports use of chewing tobacco. - Family history:: not pertinent. ROS: 04:55 Constitutional: Negative for fever, chills, and weight loss, Eyes: Negative for injury, dixie pain, redness, and discharge, ENT: Negative for injury, pain, and discharge, Neck: Negative for injury, pain, and swelling, Cardiovascular: Negative for chest pain, palpitations, and edema, Respiratory: Negative for shortness of breath, cough, wheezing, and pleuritic chest pain, : Negative for injury, bleeding, discharge, and swelling, MS/Extremity: Negative for injury and deformity, Skin: Negative for injury, rash, and discoloration, Neuro: Negative for headache, weakness, numbness, tingling, and seizure, Psych: Negative for depression, anxiety, suicide ideation, homicidal ideation, and hallucinations, Allergy/Immunology: Negative for hives, rash, and allergies, Endocrine: Negative for neck swelling, polydipsia, polyuria, polyphagia, and marked weight changes, Hematologic/Lymphatic: Negative for swollen nodes, abnormal bleeding, and unusual bruising. 04:55 Abdomen/GI: Positive for abdominal pain, nausea and vomiting, of the anterior aspect of left lateral abdomen, posterior aspect of left lateral abdomen, left upper quadrant and left lower quadrant. Exam: 04:55 Constitutional: This is a well developed, well nourished patient who is awake, alert, dixie and in no acute distress. Head/Face: Normocephalic, atraumatic. Eyes: Pupils equal round and reactive to light, extra-ocular motions intact. Lids and lashes normal. Conjunctiva and sclera are non-icteric and not injected. Cornea within normal limits. Periorbital areas with no swelling, redness, or edema. ENT: Nares patent. No nasal discharge, no septal abnormalities noted. Tympanic membranes are normal and external auditory canals are clear. Oropharynx with no redness, swelling, or masses, exudates, or evidence of obstruction, uvula midline. Mucous membranes moist. Neck: Trachea midline, no thyromegaly or masses palpated, and no cervical lymphadenopathy. Supple, full range of motion without nuchal rigidity, or vertebral point tenderness. No Meningismus. Chest/axilla: Normal chest wall appearance and motion. Nontender with no deformity. No lesions are appreciated. Cardiovascular: Regular rate and rhythm with a normal S1 and S2. No gallops, murmurs, or rubs. Normal PMI, no JVD. No pulse deficits. Respiratory: Lungs have equal breath sounds bilaterally, clear to auscultation and percussion. No rales, rhonchi or wheezes noted. No increased work of breathing, no retractions or nasal flaring. Male : Normal genitalia with no discharge or lesions. Skin: Warm, dry with normal turgor. Normal color with no rashes, no lesions, and no evidence of cellulitis. MS/ Extremity: Pulses equal, no cyanosis. Neurovascular intact. Full, normal range of motion. Neuro: Awake and alert, GCS 15, oriented to person, place, time, and situation. Cranial nerves II-XII grossly intact. Motor strength 5/5 in all extremities. Sensory grossly intact. Cerebellar exam normal. Normal gait. Psych: Awake, alert, with orientation to person, place and time. Behavior, mood, and affect are within normal limits. 04:55 Abdomen/GI: Inspection: abdomen appears normal, Bowel sounds: normal, in all quadrants, Palpation: moderate abdominal tenderness, in the posterior aspect of left lateral abdomen, left upper quadrant and left lower quadrant, Liver: no appreciated palpable abnormalities, Hernia: not appreciated. Vital Signs: 04:50 BP 121 / 105; Pulse 63; Resp 20 S; Temp 98.7(O); Pulse Ox 100% on R/A; Weight 63.5 kg bb (R); Height 6 ft. 0 in. (182.88 cm) (R); Pain 10/10; 05:45 BP 130 / 88; Pulse 57; Resp 16; Pulse Ox 100% on R/A; jb4 04:50 Body Mass Index 18.99 (63.50 kg, 182.88 cm) bb MDM: 04:46 Patient medically screened. [facility] 05:03 Differential diagnosis: Pyelonephritis Renal Infarction Ureterolithiasis AAA, dixie diverticulitis, myocardia ischemia or infarction, non-specific abd pain, pancreatitis. Data reviewed: vital signs, nurses notes, lab test result(s), radiologic studies, CT scan. Data interpreted: youth nutritional monitor: rate is 63 beats/min, rhythm is regular, Pulse oximetry: on room air is 100 %. Counseling: I had a detailed discussion with the patient and/or guardian regarding: the historical points, exam findings, and any diagnostic results supporting the discharge/admit diagnosis, lab results, radiology results, the need for outpatient follow up, for definitive care, an client relations representative, a urologist. 03/03 04:47 Order name: Basic Metabolic Panel [facility] 03/03 04:47 Order name: CBC with Diff; Complete Time: 05:32 [facility] 03/03 04:47 Order name: Hepatic Function; Complete Time: 05:32 dixie 03/03 04:47 Order name: Lipase; Complete Time: 05:32 dixie 03/03 04:48 Order name: Basic Metabolic Panel; Complete Time: 05:32 EDMS 03/03 04:47 Order name: CT Stone Protocol [facility] 03/03 04:47 Order name: IV Saline Lock; Complete Time: 05:00 dixie 03/03 04:47 Order name: Labs collected and sent; Complete Time: 05:00 [facility] 03/03 06:33 Order name: PO challenge; Complete Time: 06:35 dixie Administered Medications: 05:00 Drug: NS 0.9% 1000 ml Route: IV; Rate: 1 bolus; Site: right antecubital; jb4 06:15 Follow up: Response: No adverse reaction; IV Status: Completed infusion; IV Intake: jb4 1000ml 05:00 Drug: Ketorolac 30 mg Route: IVP; Site: right antecubital; jb4 05:29 Follow up: Response: No adverse reaction; Marked relief of symptoms; Pain is decreased jb4 05:00 Drug: morphine 4 mg Route: IVP; Site: right antecubital; jb4 05:29 Follow up: Response: No adverse reaction; Marked relief of symptoms; Pain is decreased; 4 RASS: Alert and Calm (0) 05:00 Drug: Zofran (Ondansetron) 4 mg Route: IVP; Site: right antecubital; jb4 05:28 Follow up: Response: No adverse reaction 4 05:50 Drug: Rocephin (cefTRIAXone) 1 grams Route: IV; Rate: per protocol; Site: right jb4 antecubital; 05:53 Follow up: Response: No adverse reaction; IV Status: Completed infusion; IV Intake: [id number] 05:50 Drug: Flomax (tamsulosin) 0.4 mg Route: PO; jb4 06:32 Follow up: Response: No adverse reaction jb4 06:42 Drug: [place] (HYDROcodone-acetaminophen) 10 mg-325 mg 1 tabs Route: PO; jb4 06:43 Follow up: Response: Medication administered at discharge. jb4 06:42 Drug: Zofran (Ondansetron) 4 mg Route: PO; jb4 06:43 Follow up: Response: Medication administered at discharge. 4 Disposition Summary: 03/03/21 06:18 Discharge Ordered Location: Home dixie Problem: new dixie Symptoms: have improved dixie Condition: Stable dixie Diagnosis - Hydronephrosis with renal and ureteral calculous obstruction dixie - Kidney Stone/ Calculus in urethra dixie Followup: dixie - With: Private Physician - When: 2 - 3 days - Reason: Recheck today's complaints, Continuance of care, Re-evaluation by your physician Followup: dixie - With: - When: 2 - 3 days - Reason: Recheck today's complaints, Continuance of care, Re-evaluation by your physician Discharge Instructions: - Discharge Summary Sheet [facility] - Kidney Stones dixie - Kidney Stones, [id number] dixie - Hydronephrosis [facility] - Dietary Guidelines to Help Prevent Kidney Stones [facility] Forms: - Medication Reconciliation Form [facility] - Thank You Letter [facility] - Antibiotic Education [facility] - Prescription Opioid Use [facility] - Work release form jb4 Prescriptions: - tamsulosin 0.4 mg Oral capsule - take 1 capsule by ORAL route once daily 1/2 hour following the same meal each [facility] day; 20 capsule; Refills: 0, Product Selection Permitted - Zofran 4 mg Oral Tablet - take 1 tablet by ORAL route every 12 hours As needed; 20 tablet; Refills: 0, [facility] Product Selection Permitted - Cipro 500 mg Oral Tablet - take 1 tablet by ORAL route every 12 hours for 7 days; 14 tablet; Refills: 0, [facility] Product Selection Permitted - Tramadol 50 mg Oral Tablet - take 2 tablet by ORAL route every 6 hours as needed; 26 tablet; Refills: 0, [facility] Product Selection Permitted Signatures: Dispatcher [employer] EDGarrett Dempsey MD MD cha Ballard, Brenda, RN RN Reji López RN RN jb4 Corrections: (The following items were deleted from the chart) 06:33 04:47 Urine Dipstick-Ancillary ordered. [facility] jb4
--- NOTE | 2021-03-03 06:19 | ER ---
Nurse's Notes [facility] Name: Alban Everett Age: 65 yrs Sex: Male : 1955 Arrival Date: 03/03/2021 Time: 04:41 Bed 5 Private MD: Diagnosis: Hydronephrosis with renal and ureteral calculous obstruction;Kidney Stone/ Calculus in urethra Presentation: 03/03 04:50 Chief complaint: Patient states: started having left flank pain approx 30 mins prior to bb arrival similar to when he has had a kidney stone in the past. Coronavirus screen: At this time, the client does not indicate any symptoms associated with coronavirus-19. Ebola Screen: No symptoms or risks identified at this time. Initial Sepsis Screen: Does the patient meet any 2 criteria? No. Patient's initial sepsis screen is negative. Does the patient have a suspected source of infection? No. Patient's initial sepsis screen is negative. Risk Assessment: Do you want to hurt yourself or someone else? Patient reports no desire to harm self or others. Onset of symptoms was March 03, 2021. 04:50 Method Of Arrival: Ambulatory bb 04:50 Acuity: TRI 3 bb Historical: - Allergies: 05:00 No Known Allergies; bb - Immunization history:: Adult Immunizations unknown. - Social history:: Smoking status: Patient reports use of chewing tobacco. - Family history:: not pertinent. Screenin:01 Abuse screen: Denies threats or abuse. Nutritional screening: No deficits noted. bb Tuberculosis screening: No symptoms or risk factors identified. Fall Risk None identified. Assessment: 05:01 General: Appears in no apparent distress. uncomfortable, Behavior is cooperative, jb4 anxious. Pain: Complains of pain in left low back Pain radiates to left lower quadrant Pain currently is 10 out of 10 on a pain scale. Neuro: Level of Consciousness is awake, alert, obeys commands, Oriented to person, place, time, situation. Cardiovascular: Patient's skin is warm and dry. Respiratory: Airway is patent Respiratory effort is even, unlabored, Respiratory pattern is regular, symmetrical. GI: Abdomen is flat, non-distended, Abd is soft X 4 quads Abdomen is tender to palpation X 4 quads. : Reports pain in left flank(s). EENT: Derm: Skin is intact, Skin is pink, warm \T\ dry. Musculoskeletal: Circulation, motion, and sensation intact. Range of motion: intact in all extremities. 05:49 Reassessment: Patient appears in no apparent distress at this time. Patient and/or jb4 family updated on plan of care and expected duration. Pain level reassessed. Patient is alert, oriented x 3, equal unlabored respirations, skin warm/dry/pink. Patient states feeling better. Patient states symptoms have improved. Vital Signs: 04:50 BP 121 / 105; Pulse 63; Resp 20 S; Temp 98.7(O); Pulse Ox 100% on R/A; Weight 63.5 kg bb (R); Height 6 ft. 0 in. (182.88 cm) (R); Pain 10/10; 05:45 BP 130 / 88; Pulse 57; Resp 16; Pulse Ox 100% on R/A; jb4 04:50 Body Mass Index 18.99 (63.50 kg, 182.88 cm) ED Course: 04:41 Patient arrived in ED. es 04:46 Garrett Wright MD is Attending Physician. dixie 04:49 Reji Millan RN is Primary Nurse. jb4 04:50 Initial lab(s) drawn, by ny, sent to lab. Inserted saline lock: 20 gauge in right bb antecubital area, using aseptic technique. Blood collected. 05:00 Triage completed. bb 05:00 Arm band placed on Patient placed in an exam room, on a stretcher, on pulse oximetry. bb Family accompanied patient. 05:01 Patient has correct armband on for positive identification. Placed in gown. Bed in low bb position. Call light in reach. Side rails up X 1. Adult w/ patient. Pulse ox on. NIBP on. 05:15 CT Stone Protocol In Process Unspecified. EDMS 06:18 Power Ruelas MD is Referral Physician. dixie 06:38 No provider procedures requiring assistance completed. IV discontinued, intact, jb4 bleeding controlled, No redness/swelling at site. Pressure dressing applied. Administered Medications: 05:00 Drug: NS 0.9% 1000 ml Route: IV; Rate: 1 bolus; Site: right antecubital; jb4 06:15 Follow up: Response: No adverse reaction; IV Status: Completed infusion; IV Intake: jb4 1000ml 05:00 Drug: Ketorolac 30 mg Route: IVP; Site: right antecubital; jb4 05:29 Follow up: Response: No adverse reaction; Marked relief of symptoms; Pain is decreased jb4 05:00 Drug: morphine 4 mg Route: IVP; Site: right antecubital; jb4 05:29 Follow up: Response: No adverse reaction; Marked relief of symptoms; Pain is decreased; jb4 RASS: Alert and Calm (0) 05:00 Drug: Zofran (Ondansetron) 4 mg Route: IVP; Site: right antecubital; jb4 05:28 Follow up: Response: No adverse reaction jb4 05:50 Drug: Rocephin (cefTRIAXone) 1 grams Route: IV; Rate: per protocol; Site: right jb4 antecubital; 05:53 Follow up: Response: No adverse reaction; IV Status: Completed infusion; IV Intake: [id number] 05:50 Drug: Flomax (tamsulosin) 0.4 mg Route: PO; jb4 06:32 Follow up: Response: No adverse reaction jb4 06:42 Drug: [place] (HYDROcodone-acetaminophen) 10 mg-325 mg 1 tabs Route: PO; jb4 06:43 Follow up: Response: Medication administered at discharge. jb4 06:42 Drug: Zofran (Ondansetron) 4 mg Route: PO; jb4 06:43 Follow up: Response: Medication administered at discharge. jb4 Intake: 05:53 IV: 10ml; Total: 10ml. jb4 06:15 IV: 1000ml; Total: 1010ml. jb4 Outcome: 06:18 Discharge ordered by MD. colin 06:38 Discharged to home ambulatory, with family. jb4 06:38 Condition: stable 06:38 Discharge instructions given to patient, Instructed on discharge instructions, follow up and referral plans. medication usage, Demonstrated understanding of instructions, follow-up care, medications, Prescriptions given X 4. 06:38 Patient left the ED. jb4 06:43 Patient left the ED. jb4 Signatures: Dispatcher [employer] Garrett Webber MD MD cha Salyer, Edna es Ballard, Brenda, JODY RN Reji López RN RN jb4
[2021-03-03 06:45] VITALS: TEMP 98.7; O2SAT 100
[2021-03-03 06:46] VITALS: BP 130/88
[2021-03-03] MEDS ORDERED: HYDROCODONE/APAP 10/325 TAB ONE (07:03)
[2021-03-03] MEDS ORDERED: ONDANSETRON 4 MG (ODT) TAB ONE (07:03)
--- NOTE | 2021-03-03 17:22 | RAD REPORT ---
EXAM DESCRIPTION: CT Abdomen and Pelvis COMPARISON: None. CLINICAL HISTORY: FLANK PAIN TECHNIQUE: CT of the abdomen and pelvis was acquired without IV contrast material. Coronal and sag ittal reconstructions were obtained. Automated exposure control was utilized on this examination as a dose lowering technique. FINDINGS: Lung bases: Clear. *Evaluation of solid organs is limited due to lack of IV contrast. Liver: Normal. Gallbladder and biliary: Normal gallbladder. Unremarkable biliary tree. Pancreas: Normal. Spleen: Normal. Adrenal glands: Normal adrenal glands. Kidneys: Mild left hydronephrosis. A 4 mm obstructing calculus of the mid left ureter results in mild left hydronephrosis. A 3 mm nonobstructing left renal calculus is also noted. A 2 mm nonobstructing right renal calculus is present. Stomach and Small Bowel: The stomach and small bowel are normal. Urinary bladder: Mild bladder wall thickening is likely due to decompression. Prostate/Male Urogenital: Normal. Colon and Appendix: Mild colonic diverticulosis. No evidence of appendicitis. Retroperitoneum and lymph nodes: Normal. Vascular: Severe multivessel calcified atherosclerosis. Peritoneal cavity: No ascites or free air. Musculoskeletal and soft tissues: Soft tissues are unremarkable. Lumbar spondylosis. No aggressive annamarie ne lesions. No compression fracture. IMPRESSION: 1. Obstructing 4 mm calculus of the mid left ureter with mild left hydronephrosis. 2. Additional nonobstructing bilateral nephrolithiasis. 3. Severe atherosclerosis. Electronically signed by: Luigi Benedict MD 03/03/2021 5:48 AM CDT Due to temporary technical issues with the PACS/Fluency reporting system, reports are being signed by the in house radiologists without review as a courtesy to insure prompt reporting. The interpreting radiologist is fully responsible for the content of the report.
== END 2021-03-03 06:43 | disposition home or self-care (01) ==
LOC: ER 04:39
DX: N13.2 Hydronephrosis with renal and ureteral calculous obstruction (principal); N21.1 Calculus in urethra; F17.220 Nicotine dependence, chewing tobacco, uncomplicated
CPT/HCPCS: 85025; 80048; 36415; 80076; 83690; 76377; 74176; J0696; J7030; J2405; 96361; 96374; 96375; 99284

== ENCOUNTER 2022-02-24 07:54 | Day surgery (SDC) | payer OTHER ==
[2022-02-22 17:13] LABS: Absolute Lymphocytes (CBC) 1.4 K/uL (0.7-4.9); Hematocrit 43.1 % (39.6-49.0); Lymphocytes % 21.2 % (15.3-44.8); MCV 94.6 fL (80-100); MPV 8.3 fL (7.6-11.3); RBC Red Blood Cell Count 4.55 M/uL (4.33-5.43)
[2022-02-22 17:26] LABS: Potassium 4.2 mmol/L (3.5-5.1)
--- NOTE | 2022-02-22 17:30 | RAD REPORT ---
EXAM DESCRIPTION: RAD - Chest Pa And Lat (2 Views) - 02/22/2022 4:48 pm CLINICAL HISTORY: pre op for surgery, right femur mass removal COMPARISON: Portable 01/26/2021, two view chest 01/21/2019 TECHNIQUE: Frontal and lateral views of the chest were obtained. FINDINGS: The lungs are clear of an acute infiltrate or mass. No failure or volume overload. Diaphra gm is flattened with increased retrosternal space. Heart size is normal and central vasculature is within normal limits. No pleural effusion or pneumothorax seen. No acute bony finding noted. No ao rtic abnormality. IMPRESSION: No acute cardiopulmonary process. COPD findings are evident but not clearly different from prior imaging.
[2022-02-22 19:06] LABS: SARS-CoV-2 Antigen Rapid Res Negative (Negative)
--- NOTE | 2022-02-23 08:21 | EKG ---
Test Date: 2022-02-22 Test Time: 16:30:22 Websphere Architect: MICHELE MEASUREMENT RESULTS: Intervals: Rate: 59 DC: 134 QRSD: 90 QT: 400 QTc: 396 [place]: P: 79 DC: 134 QRS: 6 T: 72 INTERPRETIVE STATEMENTS: Sinus bradycardia Possible Left atrial enlargement Borderline ECG Compared to ECG 01/21/2019 09:33:32 Sinus rhythm no longer present Electronically Signed On 02-23-22 08:18:24 CDT by Harsha Ridley
[2022-02-24] MEDS ORDERED: Ringers Lactate 1,000 ML IV ONE (08:15)
[2022-02-24] MEDS ORDERED: CEFAZOLIN SODIUM 1 GM/VIAL ONE (08:15)
[2022-02-24] MEDS ORDERED: propofoL 200 MG/20 ML VIAL IV ONE (08:23)
[2022-02-24] MEDS ORDERED: MIDAZOLAM HCL 2 MG/2 ML INJ ONE (08:23)
[2022-02-24] MEDS ORDERED: LIDOCAINE 1% MPF 5 ML VIAL ONE (08:23)
[2022-02-24] MEDS ORDERED: FENTANYL CITR 100 MCG/2 ML ONE (08:23)
[2022-02-24] MEDS: BUPIVACAINE 0.5% PF 10 ML VIAL ONE ×2 (08:32→09:23)
[2022-02-24] MEDS ORDERED: NS 0.9% VIAL 10 ML ONE ×2 (09:07→09:30)
[2022-02-24] MEDS ORDERED: ONDANSETRON 4 MG/2 ML VIAL ONE (09:15)
[2022-02-24] MEDS ORDERED: KETOROLAC 30 MG/ML INJ ONE (09:20)
[2022-02-24] MEDS ORDERED: EPHEDRINE SULF 50 MG/ML VIAL ONE (09:30)
--- NOTE | 2022-02-24 09:32 | P.BOP ---
Preoperative diagnosis: left proximal thigh tender subQ mass Postoperative diagnosis: same Primary procedure: Excisional biopsy of left proximal thigh tender subQ mass 8x8cm Gasket Maker: Olga De Jesus (Blanche) Estimated blood loss: <10cc Specimen: mass Findings: mass Anesthesia: General Complications: None Transferred to: Recovery Room Condition: Good
[2022-02-24] MEDS: MORPHINE 4 MG/ML SYR ONE ×2 (09:55→10:02)
[2022-02-24] MEDS ORDERED: MORPHINE 4 MG/ML SYR ONE (10:22)
[2022-02-24 10:44] VITALS: BP 139/72; TEMP 97.1; O2SAT 100
[2022-02-24] MEDS ORDERED: CODEINE 30MG/APAP 300MG TAB ONE (11:08)
--- NOTE | 2022-02-24 20:46 | OP ---
Date of Procedure: 02/24/2022 Surgeon: Germán Brown MD Staff Radiation Therapist: Olga Akins. Preoperative Diagnosis: Left proximal thigh tender subcutaneous mass. Postoperative Diagnosis: Left proximal thigh tender subcutaneous mass. Procedure: Excisional biopsy of left proximal thigh tender subcutaneous mass, 8 x 8 cm Estimated Blood Loss: Less than 10 mL. Specimen: Mass, all the way down to fascia of the muscle, does not penetrate the muscle. Anesthesia: General plus local. Indications: This is the case of a male, who comes to us with a tender large mass in the anterior th igh near the inguinal region. Benefits, alternatives, and risks of excision fully explained, which i nclude, but not limited to infection, bleeding, damage to adjacent structures, anesthesia complicatio n, recurrence, VA, and even . He also understands this may not relieve any symptoms. He might need more than one surgical intervention. He understood, signed a consent. Procedure In Detail: The patient was brought to the operating room, placed in supine position. Anes thesia was done without complication. Site area was prepped and draped in a sterile fashion. This i s an area on the inguinal region near the lymph nodes and near blood vessels. So, we were able to is olate those after the incision was made, after time-out was made. We made an incision over the area where the me and the patient marked the mass in the holding room. Once we went there, we went down t o subcutaneous tissue. We noticed this lobulated mass present in that region and we were able to hel p ourselves with blunt dissection to make sure the mass comes as 1 unit. This get attached partially to the fascia of the muscle in that area, but the muscle does not penetrated by this. The mass was completely excised. Blood vessels and lymph nodes were not touched. The area was irrigated. Then, we proceeded to close this, deep layers with 3-0 chromic and then a 4-0 PDS on the skin in a subcutic ular fashion. Sponge count and instrument counts were correct. The patient tolerated the procedure well. The patient was sent to Recovery in stable condition. LETY/MODL Voice ID: [id number] Report ID: [id number]
--- NOTE | 2022-02-24 20:49 | DS ---
Date of Discharge: 02/24/2022 Diagnosis: Left medial proximal thigh tender subcutaneous mass. Postoperative Diagnosis: Left medial proximal thigh tender subcutaneous mass. Procedure: Excisional biopsy of left proximal medial subcutaneous thigh mass. Disposition: Home. Activity: As tolerated. No heavy lifting. Plan: Follow up in my office in 1 week. Call for appointment at [phone]. Keep area dry for 48 jovanny rs, then may shower. Medications: Include Tylenol No. 3 q.4 hours p.r.n. pain. LETY/ALEX Voice ID: [id number] Report ID: [id number]
== END 2022-02-24 11:30 | disposition home or self-care (01) ==
LOC: OR 07:54
PROVIDERS: ATTEND Surgery
PROC: 0JBM0ZZ Excision of Left Upper Leg Subcutaneous Tissue and Fascia, Open Approach (ICD-10-PCS; principal; 2022-02-24 09:45)
DX: D17.24 Benign lipomatous neoplasm of skin and subcutaneous tissue of left leg (principal); Z20.822 Contact with and (suspected) exposure to COVID-19
CPT/HCPCS: 36415; 71046; 80048; 85025; 87811; 88304; 88305; 93005; J0690; J2250; J2405; J2704; J3010; J7120